=== PATIENT | female | born 1965 | race Caucasian/White ===

== ENCOUNTER 2016-10-11 08:32 | Outpatient (CLI) ==
--- NOTE | 2016-10-11 09:35 | MAMMO ---
EXAM: Left digital diagnostic mammogram. History: Follow-up left breast asymmetry. Comparison: Left breast mammogram 04/09/2016 Findings: Left breast density is heterogeneous. The focal asymmetry questioned on prior study is n o longer visualized and this is consistent with benign fibroglandular breast tissue. There are no s uspicious microcalcifications. Impression: Benign left mammogram. Recommend return to routine screening mammography schedule. BIRADS 2
== END 2016-10-11 08:33 | disposition home or self-care (01) ==
LOC: RAD 08:32
PROVIDERS: ATTEND Family Medicine
DX: R92.8 Other abnormal and inconclusive findings on diagnostic imaging of breast (principal)

== ENCOUNTER 2018-02-17 12:06 | Outpatient (CLI) | END 2018-02-17 12:07 | disposition home or self-care (01) | LOC: FCC-LAB 12:06 | PROVIDERS: ATTEND General Practice | DX: I63.9 Cerebral infarction, unspecified (principal); E11.9 Type 2 diabetes mellitus without complications; N18.3 Chronic kidney disease, stage 3 (moderate) | CPT/HCPCS: 36415; 80053; 80061; 81001; 83036; 83519; 83525; 84681; 85025 ==

== ENCOUNTER 2018-02-24 15:56 | Outpatient (CLI) | END 2018-02-24 15:57 | disposition home or self-care (01) | LOC: FCC-LAB 15:56 | PROVIDERS: ATTEND General Practice | DX: Z12.11 Encounter for screening for malignant neoplasm of colon (principal) | CPT/HCPCS: 82272 ==

== ENCOUNTER 2018-03-10 10:55 | Outpatient (CLI) | END 2018-03-10 10:56 | disposition home or self-care (01) | LOC: FCC-LAB 10:55 | PROVIDERS: ATTEND General Practice | DX: D72.829 Elevated white blood cell count, unspecified (principal) | CPT/HCPCS: 36415; 85025 ==

== ENCOUNTER 2018-03-23 09:59 | Outpatient (CLI) ==
--- NOTE | 2018-03-23 12:31 | US ---
EXAM: Ultrasound bilateral carotid duplex HISTORY: Smoking, lightheadedness, hypertension and diabetes with previous stroke COMPARISON: None TECHNIQUE: Sonographic and color Doppler evaluation of the carotids were performed. FINDINGS: The right carotid is patent in appearance with moderate atherosclerotic plaque visualized. The right ICA peak systolic velocity measures 100 cm/sec which is normal. The ICA / CCA peak systolic velocity ratio is 1.1 and ICA end-diastolic velocity is 30 cm/sec. There is mild wave spectral broadening. Color Doppler flow is present. The left carotid is patent in appearance with moderate atherosclerotic plaque visualized. The left ICA peak systolic velocity measures 70 cm/sec which is normal. The left ICA / CCA peak systolic velocity ratio is 0.9 and ICA end-diastolic velocity is 20 cm/sec. T here is mild wave spectral broadening. Color Doppler flow is normal. Vertebral arteries demonstrate antegrade flow bilaterally. IMPRESSION: Moderate bilateral sonographic atherosclerotic disease with no elevated velocities to suggest hemodyn amically significant stenosis.
== END 2018-03-23 10:00 | disposition home or self-care (01) ==
LOC: RAD 09:59
PROVIDERS: ATTEND General Practice
DX: R29.898 Other symptoms and signs involving the musculoskeletal system (principal); I63.9 Cerebral infarction, unspecified; I25.10 Atherosclerotic heart disease of native coronary artery without angina pectoris; I10 Essential (primary) hypertension; E11.9 Type 2 diabetes mellitus without complications; Z95.1 Presence of aortocoronary bypass graft

== ENCOUNTER 2018-03-30 17:34 | Outpatient (CLI) | payer BC, OTHER | END 2018-03-30 17:35 | disposition home or self-care (01) | LOC: FCC-LAB 17:34 | PROVIDERS: ATTEND General Practice | DX: N18.3 Chronic kidney disease, stage 3 (moderate) (principal); I63.9 Cerebral infarction, unspecified; E11.9 Type 2 diabetes mellitus without complications; Z79.899 Other long term (current) drug therapy | CPT/HCPCS: 81001; 87086; 87186 ==

== ENCOUNTER 2018-05-26 17:03 | Outpatient (CLI) ==
[2018-05-26 17:32] VITALS: BMI 21.8
== END 2018-05-26 17:18 | disposition critical access hospital (66) ==
LOC: AMBL 17:03
PROVIDERS: ATTEND Internal Medicine
DX: R10.30 Lower abdominal pain, unspecified (principal); R53.1 Weakness; R41.0 Disorientation, unspecified; I95.9 Hypotension, unspecified; I49.3 Ventricular premature depolarization; R40.2411 Glasgow coma scale score 13-15, in the field [EMT or ambulance]

== ENCOUNTER 2018-05-26 19:11 | Outpatient (CLI) ==
[2018-05-26 17:32] VITALS: BMI 21.8
== END 2018-05-26 19:35 | disposition short-term general hospital (02) ==
LOC: AMBL 19:11
PROVIDERS: ATTEND Family Medicine
DX: R10.9 Unspecified abdominal pain (principal); K92.2 Gastrointestinal hemorrhage, unspecified